=== PATIENT | male | born 1945 | race Caucasian/White ===

== ENCOUNTER → 2020-02-07 | Day surgery (SDC) | payer MEDICARE, OTHER ==
--- NOTE | 2020-02-02 15:22 | Diagnostic Imaging Report ---
EXAMINATION: PA and lateral views of the chest. COMPARISON: None CLINICAL HISTORY: Preoperative examination for knee surgery DISCUSSION: The lungs are well inflated. No focal airspace consolidation, pleural effusion, or pneumothorax. Tortuous thoracic aorta with atherosclerotic calcification. Otherwise normal cardiomediastinal contour when accounting for slight rightward patient rotation. No acute osseous abnormalities. Healed fracture deformities of the right posterior fifth, sixth, and eighth ribs. 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 IMPRESSION: No acute cardiopulmonary abnormalities. Signed by: Dr. Faisal Mata M.D. on 02/02/2020 3:19 PM
[2020-02-02 16:15] LABS: BASOPHILS % 0.7 % (0.0-1.0); EOSINOPHILS # (AUTO) 0.2 (0.0-0.4); EOSINOPHILS % 2.5 % (0.0-6.0); HEMATOCRIT 41.2 % (38.2-49.6); HEMOGLOBIN 13.4 g/dL (14.0-18.0); LYMPHOCYTES # (AUTO) 1.2 (1.0-3.2); LYMPHOCYTES % 19.4 % (18.0-39.1); MEAN CORPUSCULAR HGB CONC 32.5 g/dL (31-35); MEAN CORPUSCULAR VOLUME 92.2 fL (81-99); MONOCYTES # (AUTO) 0.4 (0.2-0.8); MONOCYTES % 6.4 % (4.4-11.3); NEUTROPHILS # (AUTO) 4.2 (2.1-6.9); NEUTROPHILS % 70.7 % (38.7-80.0); PLATELET COUNT 223 x10e3/uL (140-360); RED BLOOD COUNT 4.47 x10e6/uL (4.3-5.7); RED CELL DISTRIBUTION WIDTH 12.9 % (11.7-14.4)
[2020-02-02 16:24] LABS: INR 0.88; PROTHROMBIN TIME 12.5 seconds (11.9-14.5)
[2020-02-02 16:25] LABS: PARTIAL THROMBOPLASTIN TIME 25.6 seconds (23.8-35.5)
[2020-02-02 16:31] LABS: ANION GAP 12.5 mmol/L (8-16); CALCIUM 9.4 mg/dL (8.4-10.2); CREATININE, SERUM 1.3 mg/dL (0.72-1.25); POTASSIUM 4.5 mmol/L (3.5-5.1)
[~2020-02-07] MED LIST: ACETAMINOPHEN 1000 MG/100 ML IV ONE; AMLODIPINE BESYL5 MG PO; ASPIR 8181 MG PO; ATENOLOL50 MG PO; BACITRACIN 50,000 UNIT VIAL ONE; BUPIVACAINE HCL 0.5% INJ 30 ML VIAL INJ ONE; CEFAZOLIN SOD 1 GM/NS 50ML 100 ML IV ONE; ETOMIDATE 2 MG/ML 10 ML INJ IV ONE; FENTANYL CITRATE/PF 100MCG/2 ML INJ ONE; GLIMEPIRIDE2 MG PO; HYDROCODONE/APAP 10MG-325MG TAB ONE; INSULIN REGULAR, HUMAN 100 UNIT/1 ML 3ML VIAL ONE; ISOSORBIDE MONO20 MG PO; KETOROLAC TROMETHAMINE 30 MG/ML VIAL ONE; LIDOCAINE HCL 2% LOCAL INJ 5 ML SDV VIAL INJ ONE; LOSARTAN-HCTZ1 EAC1; MELOXICAM15 MG PO; METFORMIN HCL500 MG PO; OMEPRAZOLE40 MG PO; ONDANSETRON HCL INJ 2MG/ML 2ML 2 MG/ML VIAL ONE; PIOGLITAZONE HC45 MG PO; PROPOFOL IV EMULSION 10 MG/ML 20 ML VIAL ONE; SEVOFLURANE INHAL SOLN 250 ML PEN BTL ONE; SIMVASTATIN20 MG PO
[2020-02-07 14:25] VITALS: BP 134/65
--- NOTE | 2020-02-07 15:29 | Operative Report ---
DATE OF PROCEDURE: 02/07/2020 SURGEON: JESSICA GARCÍA MD HISTORY: Mr. Mullins is a 74-year-old male with ongoing complaint of pain of his right knee secondary to arthritic changes to the knee. The patient wished to proceed along with a total knee arthroplasty of his right knee. Risks and benefits of surgery had been outlined to him, consisting but not limited to the following: Infection, blood loss, nerve, vessel or tendon injury, DVT, ongoing pain, stiffness, leg-length discrepancy, nerve injury in particular including peroneal palsy, neuropraxia, footdrop. Informed consent was obtained. The patient was seen and identified in the preoperative holding area. The patient was then brought back to the operative suite. Timeout was taken for Mr. Harpreet Mcdowell for a right total knee arthroplasty. All were in agreement including nursing staff, Anesthesia and myself. The patient then given general intubation and the knee sterilely prepped and draped using standard fashion after the patient was intubated. The initial skin incision was made starting from the superior pole of the patella extending down to the tibial tuberosity. The patella was then carefully everted. The right and medial lateral meniscus were resected and the medial lateral retractors were placed in protecting the mediolateral collateral ligaments as well as the lateral peroneal nerve throughout the entire procedure. The patient had complete cartilage loss of all 3 compartments. Bony spurs and osteophytes were removing using rongeur. The remainder of ACL was then removed. FEMORAL COMPONENT: The trocar was then used to make entry point for the intramedullary femoral guide, which was placed in. Resection cut was made. The distal femur in 3 degrees of external rotation and 5 degrees of valgus. The femur 4 in 1 block was impacted in and anterior and posterior cuts were then completed and then subsequently anterior and posterior chamfer cuts. Trial size 4 femur right side was placed in and had an excellent fit circumferentially. The extramedullary tibial guide was placed in and placed in the alignment using proximal third of tuberosity, tibial shaft, and distal ankle joint. There was resection cut made measuring of the low side using an oscillating saw with a posterior 5-degree slope. The tibia measured to be #4 and #4 universal baseplate was placed in and placed in the correct rotation and alignment using 4 alignment rods that with the knee in full extension. Tibial resection cut was then completed. A trial of reduction was then carried out with a 9 mm poly. The patella was resected to approximately 14 to 16 mm and the patella was then sized to a 35 mm patella. A 35 mm asymmetrical patella was then correctly lateralized and the peg hole was drilled. The patient had excelled patellofemoral tracking throughout the entire range of motion. No varus or valgus, anterior or posterior instability noted. The trial components were removed. Copious irrigation was carried out the entire knee with 6 L of antibiotic and saline solution. First and second final counts were found to be correct. Upon which time, antibiotic cement was prepared on the back table and the final components were placed in consisting of the following components: Size 4 right femur, 4 tibial with a 35 mm asymmetrical patella with a 4 x 9 mm CS poly insert. The cement was allowed to harden with knee in full extension. All the excess cement was removed. One final irrigation was carried out and the final counts were found to be correct. Deep layer closure will be done beginning with 5-0 Ethibond, 0 Vicryl, 2-0 Vicryl, skin tucker. Tourniquet had been released prior to full wound closure and there was no acute pulsatile bleeding noted. Capillary refills are brisk. Pulses of 2/4. Xeroform compressive dressing was applied and the patient placed in sterile dressing consisting of gauze, Webril, Kerlix, ANAIS wrap. The patient was transferred to PACU in the stable condition. PREOPERATIVE DIAGNOSIS: Degenerative joint disease of the right knee. POSTOPERATIVE DIAGNOSIS: Degenerative joint disease of the right knee. PROCEDURES: Right total knee arthroplasty with the following components: Size 4 right CR right femoral component with #4 universal tibial baseplate, 35 asymmetrical patella, 4 x 9 mm poly insert. ANESTHESIA: Regional block and general intubation. ESTIMATED BLOOD LOSS: Less than 100 mL. SPECIMENS: Bones and soft tissue. COMPLICATIONS: None. CONDITION: Stable to PACU. INTEROPERATIVE FINDINGS: Moderate to severe degenerative joint disease of the right knee, tricompartmental. The patient was admitted to PACU. Dressing was seen dry. Capillary refills were brisk. Pain is well controlled. We will assess the patient after second round of therapy to see if he is stable to be discharged home and if he is outpatient therapy will begin tomorrow. The patient will be discharged home on Keflex, Lovenox, [place]. Discharge and wound car instructions were all discussed with nursing staff. MD SARINA REICH/GISELLA /[id number]
== END | disposition home or self-care (01) ==
LOC: OR 05:13
PROVIDERS: ATTEND Orthopaedic Surgery
DX: M17.11 Unilateral primary osteoarthritis, right knee (principal); M22.41 Chondromalacia patellae, right knee; S83.511A Sprain of anterior cruciate ligament of right knee, initial encounter; S83.261A Peripheral tear of lateral meniscus, current injury, right knee, initial encounter; M22.42 Chondromalacia patellae, left knee; I10 Essential (primary) hypertension; E78.5 Hyperlipidemia, unspecified; E11.9 Type 2 diabetes mellitus without complications; K21.9 Gastro-esophageal reflux disease without esophagitis; X58.XXXA Exposure to other specified factors, initial encounter; Z01.810 Encounter for preprocedural cardiovascular examination; Z01.812 Encounter for preprocedural laboratory examination; Z01.818 Encounter for other preprocedural examination; Z11.59 Encounter for screening for other viral diseases; Z79.82 Long term (current) use of aspirin; Z79.84 Long term (current) use of oral hypoglycemic drugs; Z68.31 Body mass index [BMI] 31.0-31.9, adult
CPT/HCPCS: 27447; 36415 ×2; 71046; 80048; 82948; 85025; 85610; 85730; 86850; 86900; 86920 ×2; 93005; 97110; 97116; 97139; 97161; 97530; C1713; J0131; J0690; J1885; J2001; J2405; J2704; J3010; U0002; J1817

== ENCOUNTER → 2020-02-24 | Outpatient (RCR) | payer MEDICARE, OTHER ==
[~2020-02-24] MED LIST changes: -ACETAMINOPHEN 1000 MG/100 ML IV ONE; -BACITRACIN 50,000 UNIT VIAL ONE; -BUPIVACAINE HCL 0.5% INJ 30 ML VIAL INJ ONE; -CEFAZOLIN SOD 1 GM/NS 50ML 100 ML IV ONE; -ETOMIDATE 2 MG/ML 10 ML INJ IV ONE; -FENTANYL CITRATE/PF 100MCG/2 ML INJ ONE; -HYDROCODONE/APAP 10MG-325MG TAB ONE; -INSULIN REGULAR, HUMAN 100 UNIT/1 ML 3ML VIAL ONE; -KETOROLAC TROMETHAMINE 30 MG/ML VIAL ONE; -LIDOCAINE HCL 2% LOCAL INJ 5 ML SDV VIAL INJ ONE; -ONDANSETRON HCL INJ 2MG/ML 2ML 2 MG/ML VIAL ONE; -PROPOFOL IV EMULSION 10 MG/ML 20 ML VIAL ONE; -SEVOFLURANE INHAL SOLN 250 ML PEN BTL ONE
== END ==
LOC: PT 02-08 10:54
PROVIDERS: ATTEND Orthopaedic Surgery
DX: Z96.651 Presence of right artificial knee joint (principal); Z47.1 Aftercare following joint replacement surgery; M25.561 Pain in right knee; M25.661 Stiffness of right knee, not elsewhere classified; M25.461 Effusion, right knee

== ENCOUNTER → 2020-03-26 | Outpatient (RCR) | payer MEDICARE, OTHER | LOC: PT 02-27 11:43 | PROVIDERS: ATTEND Orthopaedic Surgery | DX: Z96.651 Presence of right artificial knee joint (principal); Z47.1 Aftercare following joint replacement surgery; M25.561 Pain in right knee; M25.661 Stiffness of right knee, not elsewhere classified; M25.461 Effusion, right knee; M62.81 Muscle weakness (generalized) | CPT/HCPCS: 97139 ==

== ENCOUNTER 2020-04-23 11:00 | Outpatient (RCR) | payer MEDICARE, OTHER | END 2020-04-25 | LOC: PT 11:00 | PROVIDERS: ATTEND Orthopaedic Surgery | DX: Z96.651 Presence of right artificial knee joint (principal); Z47.1 Aftercare following joint replacement surgery; M62.81 Muscle weakness (generalized); M25.561 Pain in right knee; M25.661 Stiffness of right knee, not elsewhere classified; M25.461 Effusion, right knee | CPT/HCPCS: 97139 ==

== ENCOUNTER 2020-05-18 11:00 | Outpatient (RCR) | payer MEDICARE, OTHER | END 2020-05-26 | LOC: PT 11:00 | PROVIDERS: ATTEND Orthopaedic Surgery | DX: Z96.651 Presence of right artificial knee joint (principal); Z47.1 Aftercare following joint replacement surgery; M62.81 Muscle weakness (generalized); M25.561 Pain in right knee; M25.661 Stiffness of right knee, not elsewhere classified; M25.461 Effusion, right knee | CPT/HCPCS: 97139 ==